=== PATIENT | female | born 1970 | race Caucasian/White ===

== ENCOUNTER 2018-04-10 06:19 | Day surgery (SDC) | payer OTHER ==
[2018-04-10] VITALS (10 sets, daily range): BP systolic 99–140; BP diastolic 63–78; PULSE 60–86; RESP 16–20; TEMP 97.7–98.3; O2SAT 96–100
[~2018-04-10] VITALS: Ht 165.1 cm; Wt 81.7 kg
[2018-04-10] MEDS ORDERED: SODIUM CHLOR 0.9% 1000 ML INJ 1,000 ML IV SCH (06:45)
[2018-04-10] MEDS ORDERED: TOPI25TA7 PO (06:59)
[2018-04-10] MEDS ORDERED: CLON0.5T PO (06:59)
[2018-04-10] MEDS ORDERED: SUMA6INJ17 SQ (06:59)
[2018-04-10] MEDS ORDERED: APIX5TAB PO (06:59)
[2018-04-10] MEDS ORDERED: DULO1CAP3 PO (06:59)
[2018-04-10] MEDS ORDERED: BUPR300T PO (06:59)
[2018-04-10] MEDS ORDERED: HEPARIN SODIUM - IV 10,000 UNITS/10 ML VIAL ONE (07:50)
[2018-04-10] MEDS ORDERED: MIDAZOLAM HCL 2 MG/2 ML VIAL ONE (07:50)
[2018-04-10] MEDS ORDERED: HEPARIN-NS/PF INJ 1,500 ML ONE (07:50)
[2018-04-10] MEDS ORDERED: HEPARIN-NS/PF INJ 500 ML ONE (09:01)
[2018-04-10] MEDS ORDERED: CLOPIDOGREL 300 MG TAB ONE (09:25)
[2018-04-10] MEDS ORDERED: SODIUM CHLOR 0.9% 250 ML INJ 250 ML IV PRN (09:30)
[2018-04-10] MEDS ORDERED: MISC INFORMATION XX ONE (09:30)
[2018-04-10] MEDS ORDERED: BACITRACIN OINT 0.9 GM PKT TOP ONE (09:30)
[2018-04-10] MEDS ORDERED: LIDOCAINE HCL 1% 50 ML VIAL INFIL PRN (09:30)
[2018-04-10] MEDS ORDERED: ATROPINE SULFATE 1 MG/ML VIAL IV PUSH PRN (09:30)
[2018-04-10] MEDS ORDERED: LORazepam 2 MG/ML VIAL IV PUSH PRN (09:30)
--- NOTE | 2018-04-10 09:30 | CATHPROC ---
[facility] HIS Report Study Information Study Number Admission Scheduled Start Study Start [id number] Apr 10 2018 6:19AM 04/10/2018 Apr 10 2018 8:11AM [facility]iac Catheterization Admit Source Facility Department Other [facility] - Rehab Therapist Physician and Clinical Staff Initial Seferino Blanco [employer] Mauricio RN, Lucien Other cathlab, cathlab Recorder Chriss Noland RCIS(BS) Scrub Humberto, Inna,TRACK CAR OPERATOR TECH2 Procedures Performed Procedure Location (Site) Vessel Name ICE CATHETER INSERT RA Atruim PFO Device Deployed RA Atruim Equipment Time Dairy Processing Equipment Operator Description Size Mfg Part Number Used/Scraped AMPLATZER MEDICAL [id number] 08:13 GUIDEWIRE, SUPERSTIFF 260CM Used T3 MOTION. *[id number] AMPLATZER MEDICAL 09:03 SEPTAL PFO OCCLUDER, 25MM FR12 [id number] Used T3 MOTION. AMPLATZER MEDICAL SYSTEM, FR9 TORQUE DELIV 08:18 FR9 [id number] Used T3 MOTION. 80CM ARROW INTERNATIONAL CATHETER, FR.7 BALLOON [id number] 08:13 FR 7 Used INC. WEDGE PRESSURE *[id number] TRANSDUCER, TRUWAVE [id number] 08:13 GRANT MELCHOR * Used W/STOCKCOCK *[id number] BIOSENSE JACINTO [id number] 08:13 CATHETER, ACUNAV FR10 ICE FR 10 Used INC. *[id number] COVER, TRANSDUCER CABLE [id number] 08:13 CONE INSTRUMENTS Used ACUNAV *[id number] *[id number] 08:13 CORDIS/PACER SHEATH, FR10 CRYSTAL 11CM FR 10 Used *[id number] 08:13 CORDIS/PACER SHEATH, FR9 CRYSTAL 11CM FR 9 [id number] Used [id number] 08:13 Appies BLANKET,WARM AIR CCL * Used *[id number] 08:13 Appies PACK, CCL CUSTOM * Used *[id number] 08:13 ipadio PACER PEN, SKIN DUAL W/ RULER * Used *[id number] 08:13 Synapse MEDICAL WIRE, EXCHANGE 260CM 3MMJ 260CM Used *[id number] 08:13 NAMIC MANIFOLD, 4 PORT * Used *[id number] 08:13 TERUMO MEDICAL SHEATH, FR7 TERUMO (10CM) FR 7 Used *[id number] Equipment Model, Serial, Lot Number and Expiration Data Description Model Number Serial Number Lot Number Expiration Date SEPTAL PFO OCCLUDER, 25MM [id number] 01-25-2023 History: Allergies Allergy Reaction No Known Allergies History: Risk Factors Family History of Hypertension Dyslipidemia Previous AL Previous Heart Failure Premature CAD No No No No No Prior Valve Prior PCI Prior CABG Surgery No No No Cerebrovascular Peripheral Artery Chronic Lung On Dialysis Diabetes Disease Disease Disease No Yes No No No History: Stress Tests Stress or Imaging Studies Performed No Labs Hgb (g/dl) Hct (%) WBC (l/cumm) Platelets (thousands) 11.60-17.00 35.00-51.00 4.00-11.00 150.00-450.00 12.9 38.8 6.9 334 Glucose (mg/dl) BUN (mg/dl) Creatinine (mg/dl) BUN:Creatinine (1:x) 74.00-106.00 7.00-18.00 0.50-1.30 10.00-20.00 79 14 0.9 15.6 Na (meq/l) K (meq/l) 136.00-145.00 3.50-5.10 141 4.1 INR (PTT:PT) 0.90-1.10 1 CPK-MB (ng/ML) 0.50-3.60 Not Drawn Medication Medication Total Dose (Bolus/Oral) Medication Total Dosage/Unit 1% XYLOCAINE 20 mL FENTANYL 50 mcg HEPARIN 6000 units PLAVIX 600 mg VERSED 2 mg Medications (Bolus/Oral) Medication Time Given Dosage/Unit Administered By Reason VERSED 04/10/2018 8:38:30 AM 2 mg Lucien Mauricio RN 2 mg VERSED given in lab by Lucien Mauricio RN in Left Antecubital via Peripheral IV. Ordered by Seferino Guerra. FENTANYL 04/10/2018 8:39:33 AM 50 mcg Lucien Mauricio RN 50 mcg FENTANYL given in lab by Lucien Mauricio RN in Left Antecubital via Peripheral IV. Ordered by Seferino Greenberg. 1% XYLOCAINE 04/10/2018 8:42:43 AM 20 mL Seferino Guerra 20 mL 1% XYLOCAINE given in lab by Seferino Guerra in Right Groin via Subcutaneous. Ordered by Seferino Guerra. HEPARIN 04/10/2018 8:51:55 AM 6000 units Lucien Mauricio RN 6000 units HEPARIN given in lab by Lucien Mauricio RN in Left Antecubital via Peripheral IV. Ordered by Seferino Guerra. PLAVIX 04/10/2018 9:26:55 AM 600 mg Lucien Mauricio RN 600 mg PLAVIX given in lab by Lucien Mauricio RN via Oral. Ordered by Seferino Guerra. Medication (Drip) Medication Time Given Dosage/Unit Concentration/Unit Diluent (ml) Solution IV Solutions 04/10/2018 8:15:02 AM 0 mL (IV) 500 NaCl .9 Patient arrived on IV Solutions given by cathlab, cathlab in Left Antecubital via Peripheral IV. Pump /Drip Flow = 20 ml/hr using NaCl .9. Initial Case Assessment Cardiovascular HR Rhythm NIBP Chest Pain 60 nsr 123/73 0 Edema Present Skin color Skin None Normal Warm Dry Circulatory - Right Pulses Dorsalis Pedis Femoral 2 2 Scale (0,1,2,3,4,d) Circulatory - Left Pulses Dorsalis Pedis Femoral 2 2 Scale (0,1,2,3,4,d) Neurological State Oriented to time-place- Alert Moves all extremities person Respiration - General Respiration Rate SpO2 (%) (B/min) 15 100 Final Case Assessment Cardiovascular HR Rhythm NIBP Chest Pain 70 nsr 111/70 0 Edema Present Skin color Skin None Normal Warm Dry Circulatory - Right Pulses Dorsalis Pedis Femoral 2 2 Scale (0,1,2,3,4,d) Circulatory - Left Pulses Dorsalis Pedis Femoral 2 2 Scale (0,1,2,3,4,d) Neurological State Oriented to time-place- Alert Moves all extremities person Respiration - General Respiration Rate SpO2 (%) (B/min) 15 97 Chronological Log Time Study Chronological Log 8:13:33 Patient arrived via Bed. 8:13:34 Patient Name, D.O.B, / Armband Verified By R.N. 8:13:35 Consent signed by the physician and the patient and verified by the Rehab Therapist staff. 8:13:36 Pre-op and post- op instructions given; patient acknowledges understanding of instructions. 8:13:37 Verbal Stimulation=2 Physical Stimulation=2 Airway=2 Respiration=2 TOTAL=8. (0=absent, 1=li mited, 2=present) 8:14:24 Presedation assessment performed by Rehab Therapist RN. 8:14:24 Immediate Presedation assesment performed by physician. 8:14:25 Patient has been NPO for More than 6Hrs. 8:14:25 Skin Breakdown- none per patient 8:14:50 Patient Warmer Placed on the Table. 8:14:51 Destiny Prominences Protected 8:14:53 A # 20 IV was noted in the Antecubital (left). Grade = 0 Patient arrived on IV Solutions given by cathlab, cathlab in Left Antecubital via Peripheral IV . Pump/Drip Flow = 20 8:15:02 ml/hr using NaCl .9. Assessment: Initial Case, HR=60 BPM, Rhythm=nsr, YOME=999/73 mmhg, Chest Pain=0, Edema=None, Co santy=Normal, Skin = Warm, Dry Right Pulses: Dwain Ped=2, Femoral=2 8:18:40 Left Pulses: Dwain Ped=2, Femoral=2 Neurological: State=Alert, Ox3, CALDERON Respiration: Resp=15 B/min, OlI5=912 % Vitals capture started with the following parameters, Patient=Adult, Interval=5 min, Initial Pre gvofi=829 mmHg, 8:18:41 Deflation Rate=5 mmHg, Cuff placed on Left Arm 8:19:51 HR=69 bpm, XAKA=000/73 mmhg, HlK4=174.0 %, Resp=15 B/min, Pain=0, Meenu=10, Marcos=2 8:22:43 Bilateral groins prepped with 2% chlorhexidine, and draped after a 3 minute waiting time. 8:24:11 HR=65 bpm, WEKU=890/78 mmhg, AcS1=986.0 %, Resp=15 B/min, Pain=0, Meenu=10, Marcos=2 8:29:12 HR=65 bpm, OWHB=731/69 mmhg, UpT3=017.0 %, Resp=16 B/min, Pain=0, Meenu=10, Marcos=2 8:29:58 MD paged 8:30:12 MD responded 8:30:16 Pressure channel 1 zeroed. 8:30:20 Reference ECG taken 8:34:13 HR=67 bpm, FGXG=317/74 mmhg, ZxZ1=396.0 %, Resp=13 B/min 8:36:43 MD arrived. Time Out. Correct patient, correct procedure, correct physician, labs, allergies, and equipment verified with clinical lab specialist 8:37:02 team present. Fire risk assesment completed (see hard stop sheet for coding). Time Out Concu rred by MD and individual staff in procedure. 8:37:55 Immediate Presedation assesment performed by physician. 8:38:30 2 mg VERSED given in lab by Lucien Mauricio RN in Left Antecubital via Peripheral IV. Ordered Seferino Segura. 8:39:14 HR=66 bpm, ZLAK=826/71 mmhg, EeK1=638.0 %, Resp=12 B/min, Pain=0, Meenu=10, Marcos=2 8:39:33 50 mcg FENTANYL given in lab by Lucien Mauricio RN in Left Antecubital via Peripheral IV. Order ed by Seferino Guerra. 8:42:43 20 mL 1% XYLOCAINE given in lab by Seferino Guerra in Right Groin via Subcutaneous. Ordered Seferino Segura. 8:42:50 Case Start 8:44:16 HR=63 bpm, NHIQ=249/65 mmhg, SpO2=96.0 %, Resp=18 B/min, Pain=0, Meenu=10, Marcos=2 8:45:09 Vascular access was obtained in the Fem Vein (right). 8:45:42 A SHEATH, FR10 CRYSTAL 11CM FR 10 was advanced into the Fem Vein (right) using the Percutaneo us technique. 8:46:30 Vascular access was obtained in the Fem Vein (right). 8:47:45 A SHEATH, FR7 TERUMO (10CM) FR 7 was advanced into the Fem Vein (right) using the Percutaneo us technique. 8:48:09 A CATHETER, FR.7 BALLOON WEDGE PRESSURE FR 7 was inserted via Fem Vein (right) Recorded Pressure: RA, HR=63, Condition=Condition 1 8:48:39 (Right Atrium) RA Recorded Pressure: RV, HR=68, Condition=Condition 1 8:49:05 (Right Ventricle) RV 8 8:49:10 HR=67 bpm, BRJN=660/70 mmhg, SpO2=96.0 %, Resp=19 B/min, Pain=0, Meenu=10, Marcos=2 Recorded Pressure: MPA, HR=67, Condition=Condition 1 8:49:34 (Main Pulmonary Artery) MPA 11/06/11 Recorded Pressure: PCW, HR=66, Condition=Condition 1 8:49:47 (Pulmonary Capillary Wedge) PCW 8:49:58 [place] Marissa Catheter Removed 8:50:11 Saturation: Site=Ao (Aorta) , O2=95 %, Hgb=12.9 gm/dl, Condition=Condition 1. Used in calcul ation. 8:50:22 Saturation: Site=PA (Pulmonary Artery) , O2=72.9 %, Hgb=12.9 gm/dl, Condition=Condition 1. U sed in calculation. 8:50:54 Saturation: Site=RV (Right Ventricle) , O2=72.4 %, Hgb=12.9 gm/dl, Condition=Condition 1. Us ed in calculation. 8:51:10 Saturation: Site=RA (Right Atrium) , O2=75 %, Hgb=12.9 gm/dl, Condition=Condition 1. Used in calculation. 8:51:23 [place] Marissa Catheter Removed 8:51:55 6000 units HEPARIN given in lab by Lucien Mauricio RN in Left Antecubital via Peripheral IV. Or dered by Seferino Guerra. 8:52:53 CATHETER, ACUNAV FR10 ICE FR 10 Was Postioned. 8:54:12 HR=70 bpm, PSKG=911/70 mmhg, SpO2=97.0 %, Resp=17 B/min, Pain=0, Meenu=10, Marcos=2 8:55:59 A MPA-2 INFINITI CATHETER FR 5 was advanced over a wire. contrast was used for injections. 8:56:49 Activated Clotting Time Drawn 8:56:57 The previous wire was exchanged for a GUIDEWIRE, SUPERSTIFF 260CM. 8:59:13 HR=71 bpm, NIDP=193/70 mmhg, SpO2=97.0 %, Resp=16 B/min, Pain=0, Meenu=10, Marcos=2 9:03:50 ACT (Normal Range 90-180) = 378 A SYSTEM, FR9 TORQUE DELIV 80CM FR9 was exchanged in the Fem Art (right). This was necessary in order to 9:04:00 accomodate a larger catheter. 9:04:14 HR=66 bpm, WCOX=981/67 mmhg, SpO2=97.0 %, Resp=16 B/min, Pain=0, Meenu=10, Marcos=2 9:06:27 SEPTAL PFO OCCLUDER, 25MM FR12 Deployed. 9:09:15 HR=67 bpm, IKYG=909/69 mmhg, SpO2=97.0 %, Resp=15 B/min, Pain=0, Meenu=10, Marcos=2 9:10:12 Device released. A SHEATH, FR9 CRYSTAL 11CM FR 9 was exchanged in the Fem Art (right). This was necessary in order to minimize 9:12:56 site leakage. 9:14:16 HR=70 bpm, NSVQ=406/70 mmhg, SpO2=96.0 %, Resp=19 B/min, Pain=0, Meenu=10, Marcos=2 9:14:20 Case End (Physician broke scrub) Assessment: Final Case, HR=70 BPM, Rhythm=nsr, JOFA=207/70 mmhg, Chest Pain=0, Edema=None, Color =Normal, Skin = Warm, Dry Right Pulses: Dwain Ped=2, Femoral=2 9:14:29 Left Pulses: Dwain Ped=2, Femoral=2 Neurological: State=Alert, Ox3, CALDERON Respiration: Resp=15 B/min, SpO2=97 % 9:14:41 Catheter(s) removed without difficulty 9:14:42 In the Fem Vein (right) the SHEATH, FR9 CRYSTAL 11CM FR [address] by [address] Guerra. 9:14:46 In the Fem Vein (right) the SHEATH, FR10 CRYSTAL 11CM FR [address] bunny Guerra. 9:14:53 Sterile dressing applied to site 9:14:53 No case complications noted. 9:14:54 Cine recording checked. 9:14:55 Holding Area notified of successful intervention. 9:14:56 Bedside Report will be given. 9:14:56 Implantable Device card placed in patient's chart. 9:14:59 Verbal Stimulation=2 Physical Stimulation=2 Airway=2 Respiration=2 TOTAL=8. (0=absent, 1=bennett ited, 2=present) 9:15:07 Right Heart Cath was performed. 9:18:12 Activated Clotting Time Drawn 9:19:17 HR=66 bpm, KINV=178/61 mmhg, SpO2=97.0 %, Resp=15 B/min, Pain=0, Meenu=10, Marcos=2 9:21:13 ACT (Normal Range 90-180) = 333 9:24:16 MCXD=307/71 mmhg, Pain=0, Meenu=10, Marcos=2 9:25:25 Vitals capture stopped. 9:25:54 Patient moved to [facility] 9:26:55 600 mg PLAVIX given in lab by Lucien Mauricio RN via Oral. Ordered by Seferino Guerra. End Study - Contrast Media Used In Study Contrast Total Opened (mL) Total Used (mL) Total Wasted (mL) Unspecified 0 0 0 End Study - Maximum Contrast Load Max Contrast Load (mL) 459.3 End Study - Radiation Exposure Fluoro Time (minutes) 6.6 End Study - Patient Disposition Complications Transferred To Interventional Outcome No Rehab Therapist Holding successful
--- NOTE | 2018-04-10 10:16 | MA ---
cc: Seferino Guerra MD DATE: 04/10/2018 PROCEDURE: Patent foramen ovale closure. PROCEDURES PERFORMED: 1. Fluoroscopy with interpretation. 2. Right heart catheterization. 3. Intracardiac echocardiography. 4. Endovascular patent foramen ovale closure. METHOD: Risks, benefits and alternatives discussed with the patient. The patient understood and consented to the procedure. DESCRIPTION OF PROCEDURE: The patient was brought to catheterization lab and placed on the catheterization table. Right groin was prepped and draped in sterile fashion. The right groin was anesthetized with 2% lidocaine. The right femoral vein was accessed and a 10-Cymro, 11 cm sheath was placed. Right femoral vein was accessed again and a 6-Cymro 11 cm sheath was placed. Intracardiac echocardiography; 10-Cymro AcuNav intracardiac echo device was then advanced through the 10-Cymro sheath up to the level of the right atrium to visualize the interatrial septum. Intracardiac echocardiography was utilized throughout the procedure to assist in deployment of the device. RIGHT HEART CATHETERIZATION: A 7-Cymro [place]-Marissa pulmonary arterial catheter was advanced to the right femoral venous sheath to the level of the right atrium under fluoroscopic guidance. Hemodynamics were as follows: 1. Right atrial pressure measured 9 mmHg. 2. Right ventricular pressure measured 17/5 mmHg. 3. Pulmonary arterial pressure measured at 20/10 mmHg. 4. Pulmonary capillary wedge pressure measured at 10 mmHg. 5. Cardiac output is 6.1 liters per minute. 6. Cardiac index 3.2 liters per minute per meter square. Oxygen saturation run was performed from right atrium, right ventricle, pulmonary artery, without evidence for step up. Heparin was administered throughout the entire procedure to maintain appropriate anticoagulation. He has a patent foramen ovale closure; a 5-Cymro multipurpose catheter was advanced to the right atrium under fluoroscopic and echocardiographic guidance. A 0.035 inch standard J wire was then navigated through the multipurpose catheter and across the interatrial septum into the left upper pulmonary vein. The Amplatzer delivery sheath was then prepped. The sheath was advanced into the left atrium. Dilator and wire were removed. The Capzles system with a 25 mm patent foramen ovale Amplatzer occluder device was then advanced up to the distal edge of the delivery sheath. Left atrial disk was then deployed. The sheath and the disk were pulled back to the interatrial septum and the right atrial disk deployed. Appropriate position was confirmed by fluoroscopy. In addition, a transesophageal echocardiography. The delivery cable was then released from the device with good seating in position. The 9-Cymro delivery sheath was exchanged for 9-Cymro 11 cm sheath and a 10-Cymro sheath was sewn into place. CONCLUSIONS: 1. Successful percutaneous patent foramen ovale closure using an Amplatzer PFO 25 mm occluder device. 2. Successful utilization of intracardiac echocardiography. 3. Normal right-sided filling pressures, normal pulmonary arterial pressures, normal cardiac output and index. PLAN: The patient to be monitored for any postprocedure complications. Neurologically, the patient is fully intact at completion of the procedure. Sheaths will be removed with manual hemostasis. We will obtain a limited 2D echocardiogram tomorrow. Anticipate potential discharge tomorrow. The patient will need to be maintained on aspirin and Plavix. The patient will need a 6 month followup, transthoracic echo with agitated saline contrast administration, at which point, if that is negative, can discontinue Plavix and remain on aspirin. Seferino Guerra MD NAILA/TL , 09:39 AM , 10:15 AM
[2018-04-10] MEDS ORDERED: CLOPIDOGREL 300 MG TAB PO ONE (10:30)
--- NOTE | 2018-04-10 14:48 | ECHRPT ---
Indication: CONCLUSIONS Normal left ventricular size and wall thickness. The left ventricular systolic function is normal wi th an estimated ejection fraction in the range of 60-65%. Left ventricular diastolic function parameters a re normal. No atrial level shunt is demonstrated by color flow Doppler interrogation. An interatrial septal occluder closure device is present in a well seated position. BP: / HR: Rhythm: MEASUREMENTS (Male / Female) Normal Values Technical Quality: 2D ECHO LV Diastolic Diameter PLAX 4.4 cm 4.2 - 5.9 / 3.9 - 5.3 cm LV Systolic Diameter PLAX 3.5 cm IVS Diastolic Thickness 1.0 cm 0.6 - 1.0 / 0.6 - 0.9 cm LVPW Diastolic Thickness 0.7 cm 0.6 - 1.0 / 0.6 - 0.9 cm LV Relative Wall Thickness 0.4 DOPPLER TR Peak Velocity 182.0 cm/s TR Peak Gradient 13.2 mmHg FINDINGS LEFT VENTRICLE Normal left ventricular size and wall thickness. The left ventricular systolic function is normal wi th an estimated ejection fraction in the range of 60-65%. Left ventricular diastolic function parameters a re normal. RIGHT VENTRICLE Normal right ventricular size and systolic function. LEFT ATRIUM The left atrial size is normal. RIGHT ATRIUM The right atrial size is normal. ATRIAL SEPTUM No atrial level shunt is demonstrated by color flow Doppler interrogation. An interatrial septal occluder closure device is present in a well seated position. AORTA The aortic root and proximal ascending aorta are normal in size on limited imaging. MITRAL VALVE Structurally normal mitral valve. No mitral valve stenosis or regurgitation. AORTIC VALVE Trileaflet aortic valve. No aortic valve stenosis or regurgitation. TRICUSPID VALVE Structurally normal tricuspid valve. No tricuspid valve stenosis or regurgitation. PULMONARY VALVE The pulmonary valve is not well visualized. VESSELS The inferior vena cava is normal in size. PERICARDIUM No pericardial effusion. Seferino Guerra MD, FACC (Electronically Signed) Final Date:10 April 2018 14:47
[2018-04-10] MEDS: oxyCODONE/ACETAMINOPHEN 5 MG/325 MG TAB PO PRN ×2 (18:21→22:54)
[2018-04-10] MEDS: clonazePAM 0.5 MG TAB PO SCH (21:09)
[2018-04-11] VITALS (10 sets, daily range): BP systolic 109–117; BP diastolic 58–60; PULSE 68–85; RESP 16–18; TEMP 97.8–98; O2SAT 98
[2018-04-11 05:03] LABS: BASOPHIL # 0.1 TH/MM3 (0-0.2); BASOPHIL % 1.1 % (0.0-2.0); EOSINOPHIL # 0.3 TH/MM3 (0-0.4); EOSINOPHIL % 4.9 % (0.0-4.0); HEMATOCRIT 35.1 % (35.0-46.0); HEMOGLOBIN 11.7 GM/DL (11.6-15.3); LYMPH % 21.9 % (9.0-44.0); LYMPHOCYTE # 1.4 TH/MM3 (1.0-4.8); MEAN CELL VOLUME 91.4 FL (80.0-100.0); MEAN CORPUSCULAR HEMOGLOBIN 30.4 PG (27.0-34.0); MEAN CORPUSCULAR HGB CONC 33.3 % (32.0-36.0); MEAN PLATELET VOLUME 7.3 FL (7.0-11.0); MONO % 9.6 % (0.0-8.0); MONOCYTE # 0.6 TH/MM3 (0-0.9); NEUT % 62.5 % (16.0-70.0); PLATELET COUNT 272 TH/MM3 (150-450); RED BLOOD COUNT 3.84 MIL/MM3 (4.00-5.30); RED CELL DISTRIBUTION WIDTH 14.2 % (11.6-17.2); WHITE BLOOD COUNT 6.4 TH/MM3 (4.0-11.0)
[2018-04-11 05:23] LABS: BICARBONATE 27.2 MEQ/L (21.0-32.0); CALCIUM 8.2 MG/DL (8.5-10.1); CREATININE 0.8 MG/DL (0.50-1.00)
--- NOTE | 2018-04-11 07:51 | PD.CARD.PN ---
Subjective Subjective Remarks feeling well. no chest pain or sob. Objective Medications Current Medications Medications (Trade) Dose Ordered Sig/Nancy Route Start Time Stop Time Status Last Admin Sodium Chloride 1,000 ml @ 30 mls/hr Q24H IV 04/10/18 06:45 (Percocet 5-325 Mg) 1 tab Q4H PRN PO 04/10/18 09:30 04/10/18 22:54 (Plavix) 75 mg DAILY PO 04/11/18 09:00 (Ativan Inj) 0.5 mg UNSCH PRN IV PUSH 04/10/18 09:30 04/11/18 09:29 (Atropine Inj) 0.5 mg UNSCH PRN IV PUSH 04/10/18 09:30 Sodium Chloride 250 ml @ 500 mls/hr ONCE PRN IV 04/10/18 09:30 04/11/18 09:29 (Xylocaine 1% Inj (50 ml)) 10 ml UNSCH PRN INFIL 04/10/18 09:30 04/11/18 09:29 (Wellbutrin Xl 24 Hr) 300 mg DAILY PO 04/11/18 09:00 (KlonoPIN) 0.5 mg BID PO 04/10/18 21:00 04/10/18 21:09 (Cymbalta Dr) 60 mg DAILY PO 04/11/18 09:00 (Topamax) 50 mg DAILY PO 04/11/18 09:00 (Aspirin Chew) 325 mg DAILY PO 04/11/18 09:00 Vital Signs / I&O Vital Signs Date Time Temp Pulse Resp B/P (MAP) Pulse Ox O2 Delivery O2 Flow Rate FiO2 04/11/18 07:40 73 04/11/18 06:00 70 04/11/18 05:00 68 04/11/18 04:00 85 04/11/18 03:00 70 04/11/18 03:00 97.8 73 16 109/58 (75) 98 04/11/18 02:00 75 04/11/18 01:00 74 04/11/18 00:00 72 04/10/18 23:55 16 04/10/18 23:06 97.7 73 16 99/63 (75) 98 04/10/18 23:00 86 04/10/18 22:00 73 04/10/18 21:00 75 04/10/18 20:00 76 04/10/18 19:56 97.9 76 16 140/77 (98) 100 04/10/18 19:00 86 04/10/18 15:49 98.0 78 20 122/64 (83) 98 04/10/18 15:47 81 04/10/18 09:41 97 Room Air I/O 04/10/18 04/10/18 04/10/18 04/11/18 04/11/18 04/11/18 07:00 15:00 23:00 07:00 15:00 23:00 Intake Total 680 ml 720 ml Output Total 111 ml Balance 680 ml 609 ml Intake Oral 680 ml 720 ml IV Total 0 ml Output Urine Total 111 ml # Voids 1 Physical Exam GENERAL: SKIN: Warm and dry. HEAD: Atraumatic. Normocephalic. EYES: Pupils equal and round. No scleral icterus. ENT: No nasal bleeding or discharge. NECK: Trachea midline. No JVD. CARDIOVASCULAR: Regular rate and rhythm. no murmurs RESPIRATORY: No accessory muscle use. Clear to auscultation. Breath sounds equal bilaterally. GASTROINTESTINAL: Abdomen soft, non-tender, nondistended. MUSCULOSKELETAL: Extremities without clubbing, cyanosis, or edema. No obvious deformities. NEUROLOGICAL: Awake and alert. No obvious cranial nerve deficits. Normal speech. PSYCHIATRIC: Appropriate mood and affect; insight and judgment normal. Laboratory Laboratory Tests Test 04/11/18 04:33 White Blood Count 6.4 TH/MM3 Red Blood Count 3.84 MIL/MM3 Hemoglobin 11.7 GM/DL Hematocrit 35.1 % Mean Corpuscular Volume 91.4 FL Mean Corpuscular Hemoglobin 30.4 PG Mean Corpuscular Hemoglobin Concent 33.3 % Red Cell Distribution Width 14.2 % Platelet Count 272 TH/MM3 Mean Platelet Volume 7.3 FL Neutrophils (%) (Auto) 62.5 % Lymphocytes (%) (Auto) 21.9 % Monocytes (%) (Auto) 9.6 % Eosinophils (%) (Auto) 4.9 % Basophils (%) (Auto) 1.1 % Neutrophils # (Auto) 4.0 TH/MM3 Lymphocytes # (Auto) 1.4 TH/MM3 Monocytes # (Auto) 0.6 TH/MM3 Eosinophils # (Auto) 0.3 TH/MM3 Basophils # (Auto) 0.1 TH/MM3 CBC Comment DIFF FINAL Differential Comment Blood Urea Nitrogen 12 MG/DL Creatinine 0.80 MG/DL Random Glucose 79 MG/DL Calcium Level 8.2 MG/DL Sodium Level 142 MEQ/L Potassium Level 3.5 MEQ/L Chloride Level 107 MEQ/L Carbon Dioxide Level 27.2 MEQ/L Anion Gap 8 MEQ/L Estimat Glomerular Filtration Rate 76 ML/MIN Assessment and Plan Assessment and Plan s/p PFO closure 04/11/18: recovering well. postprocedure echo demonstrates well seated interatrial septal occluder, EF normal cont asa and plavix follow up echo with agitated saline in 6 months. will likely be discharged today Dana Bello Apr 11, 2018 07:51
[2018-04-11] MEDS ORDERED: ASPI81 PO (08:52)
[2018-04-11] MEDS ORDERED: PLAV75TA29 PO (08:52)
--- NOTE | 2018-04-11 08:57 | HHI.DS ---
Discharge Summary Admission Date Discharge Date: Apr 11, 2018 Admitting Diagnosis stroke (1) CVA (cerebral vascular accident) ICD Codes: I63.9 - Cerebral infarction, unspecified Status: Resolved (2) PFO (patent foramen ovale) ICD Codes: Q21.1 - Atrial septal defect Status: Resolved (3) S/P percutaneous patent foramen ovale closure ICD Codes: Z87.74 - Personal history of (corrected) congenital malformations of heart and circulatory system Procedures transcatheter patent foramen ovale closure with Amplatzer PFO occluder device Brief History history of stroke on therapy elective admission for PFO closure CBC/BMP: 04/11/18 0433 04/11/18 0433 Significant Findings Laboratory Tests Test 04/10/18 06:50 04/11/18 04:33 Red Blood Count 3.84 MIL/MM3 (4.00-5.30) Monocytes (%) (Auto) 9.6 % (0.0-8.0) Eosinophils (%) (Auto) 4.9 % (0.0-4.0) Calcium Level 8.2 MG/DL (8.5-10.1) Estimat Glomerular Filtration Rate 76 ML/MIN (>89) PE at Discharge HEAD: Normocephalic. EYES: No scleral icterus. No injection or drainage. NECK: Supple, trachea midline. No JVD or lymphadenopathy. CARDIOVASCULAR: Regular rate and rhythm without murmurs, gallops, or rubs. RESPIRATORY: Breath sounds equal bilaterally. No accessory muscle use. GASTROINTESTINAL: Abdomen soft, non-tender, nondistended. MUSCULOSKELETAL: No cyanosis, or edema. BACK: Nontender without obvious deformity. No CVA tenderness. Pt Condition on Discharge: Good Discharge Disposition: Discharge Home Discharge Instructions DIET: Follow Instructions for: Heart Healthy Diet Follow up Referrals: Cardiology - 4 Weeks @ [facility] New Medications: Aspirin (Tgt Aspirin) 81 Mg Chw 325 MG PO DAILY for CVA for 30 Days, #30 EA 11 Refills Clopidogrel (Plavix) 75 Mg Tab 75 MG PO DAILY for CVA for 30 Days, #30 TAB 6 Refills Continued Medications: Bupropion HCl ER 24 HR (Bupropion HCl ER 24 HR) 300 Mg Tab 300 MG PO DAILY for Control Depression, TAB 0 Refills Clonazepam (Clonazepam) 0.5 Mg Tab 0.5 MG PO BID, #60 TAB [address] (Duloxetine DR) 60 Mg Capdr 60 MG PO DAILY, #30 CAP 0 Refills Sumatriptan Inj (Sumatriptan Inj) 6 Mg/0.5 Ml Inj 6 MG SQ ONCE PRN for MIGRAINE HEADACHE, #2 SYRINGE 0 Refills May repeat dose in 1 hour if needed. Topiramate (Topiramate) 25 Mg Tab 50 MG PO DAILY for Control Seizures, #60 TAB 0 Refills Seferino Guerra MD Apr 11, 2018 08:57
[2018-04-11] MEDS: clonazePAM 0.5 MG TAB PO SCH (09:00)
[2018-04-11] MEDS ORDERED: TOPIRAMATE 25 MG TAB PO SCH (09:00)
[2018-04-11] MEDS ORDERED: ASPIRIN 81 MG CHEW TAB PO SCH ×2 (09:00)
[2018-04-11] MEDS ORDERED: DULoxetine HCl DR 60 MG CAP PO SCH (09:00)
[2018-04-11] MEDS ORDERED: CLOPIDOGREL 75 MG TAB PO SCH (09:00)
[2018-04-11] MEDS ORDERED: buPROPion HCL 150 MG EXTENDED RELEASE TAB PO SCH (09:00)
--- NOTE | 2018-04-11 10:39 | EKG ---
Date Performed: 04/11/2018 Time Performed: 04:21:46 PTAGE: 48 years EKG: Sinus rhythm Normal ECG NO PREVIOUS TRACING DOCTOR: Jose Eduardo Hernández Interpretating Date/Time 04/11/2018 10:37:00
== END 2018-04-11 10:58 | disposition home or self-care (01) ==
LOC: HDIC 06:19 → HDOC 06:19 → HCIS 14:53 → HDOC 04-11 10:58
PROVIDERS: ATTEND Internal Medicine
DX: Q21.1 Atrial septal defect (principal); G45.9 Transient cerebral ischemic attack, unspecified; G43.909 Migraine, unspecified, not intractable, without status migrainosus; N18.2 Chronic kidney disease, stage 2 (mild); G43.109 Migraine with aura, not intractable, without status migrainosus; R29.810 Facial weakness; G47.00 Insomnia, unspecified; M79.604 Pain in right leg; M79.605 Pain in left leg; R20.2 Paresthesia of skin; G25.81 Restless legs syndrome; R00.0 Tachycardia, unspecified; G47.9 Sleep disorder, unspecified; D47.3 Essential (hemorrhagic) thrombocythemia; R39.9 Unspecified symptoms and signs involving the genitourinary system; F41.9 Anxiety disorder, unspecified; F33.9 Major depressive disorder, recurrent, unspecified; E66.3 Overweight; Z68.29 Body mass index [BMI] 29.0-29.9, adult; L98.9 Disorder of the skin and subcutaneous tissue, unspecified; Z79.82 Long term (current) use of aspirin
CPT/HCPCS: 80048; 82810; 84702; 85002; 85025; 85347; 86850; 86900; 86901; 93005; 93308; 93580; 93662; C1759; C1769; C1817; C1893; J1644; J2250; J3010